=== PATIENT | female | born 1970 | race Native Hawaiian/Other Pacific Islander ===

== ENCOUNTER 2018-02-01 09:07 | Outpatient (CLI) | payer BC | END 2018-02-01 22:48 | disposition home or self-care (01) | LOC: CT 09:07 | DX: J32.8 Other chronic sinusitis (principal) ==

== ENCOUNTER 2018-02-08 13:02 | Outpatient (CLI) | payer BC | END 2018-02-08 19:53 | disposition home or self-care (01) | LOC: MAMMO 13:02 | DX: Z12.31 Encounter for screening mammogram for malignant neoplasm of breast (principal) ==

== ENCOUNTER 2019-05-17 08:36 | Outpatient (CLI) | payer BC | END 2019-05-17 22:11 | disposition home or self-care (01) | LOC: MAMMO 08:36 | DX: Z12.31 Encounter for screening mammogram for malignant neoplasm of breast (principal) ==

== ENCOUNTER 2021-10-06 11:21 | Outpatient (CLI) | payer BC | END 2021-10-06 18:53 | disposition home or self-care (01) | LOC: MAMMO 11:21 | PROVIDERS: ATTEND Registered Nurse | DX: Z12.31 Encounter for screening mammogram for malignant neoplasm of breast (principal) ==

== ENCOUNTER 2022-10-25 14:27 | Outpatient (CLI) | payer BC | END 2022-10-25 19:16 | disposition home or self-care (01) | LOC: MAMMO 14:27 | PROVIDERS: ATTEND Registered Nurse | DX: Z12.31 Encounter for screening mammogram for malignant neoplasm of breast (principal) ==